=== PATIENT | female | born 1980 | race Caucasian/White ===

== ENCOUNTER → 2023-12-27 18:34 | Outpatient (REF) | payer BC, SELFPAY | LOC: WDC 18:34 | PROVIDERS: ATTENDING PHYSICIAN Physician Assistant | DX: Z12.31 Encounter for screening mammogram for malignant neoplasm of breast (principal) | CPT/HCPCS: 77063; 77067 ==

== ENCOUNTER → 2024-01-13 11:30 | Outpatient (REF) | payer BC, SELFPAY ==
[2024-01-14 10:38] LABS: Glycohemoglobin (HgbA1c) 6.4 % (4.0-5.6)
== END ==
LOC: REG 11:30
PROVIDERS: ATTENDING PHYSICIAN Physician Assistant
DX: E11.69 Type 2 diabetes mellitus with other specified complication (principal)
CPT/HCPCS: 83036

== ENCOUNTER → 2024-08-05 12:17 | Outpatient (REF) | payer BC, SELFPAY ==
[2024-08-09 06:40] LABS: HPV, High Risk Not Detected; HPV, High Risk Source Cervical
== END ==
LOC: CPAP 12:17
PROVIDERS: ATTENDING PHYSICIAN Obstetrics & Gynecology
DX: Z01.419 Encounter for gynecological examination (general) (routine) without abnormal findings (principal); Z11.51 Encounter for screening for human papillomavirus (HPV)
CPT/HCPCS: 87624

== ENCOUNTER → 2024-08-08 18:27 | Outpatient (REF) | payer BC, SELFPAY | LOC: RAD 18:27 | PROVIDERS: ATTENDING PHYSICIAN Nurse Practitioner; FAMILY PHYSICIAN Physician Assistant | DX: M25.579 Pain in unspecified ankle and joints of unspecified foot (principal) | CPT/HCPCS: 73610 ==

== ENCOUNTER → 2024-10-02 12:18 | Outpatient (REF) | payer BC, SELFPAY | LOC: RAD 12:18 | PROVIDERS: ATTENDING PHYSICIAN Physician Assistant | DX: E04.9 Nontoxic goiter, unspecified (principal) | CPT/HCPCS: 76536 ==

== ENCOUNTER → 2024-11-07 11:51 | Outpatient (REF) | payer BC, SELFPAY ==
[2024-11-07 15:22] LABS: Glycohemoglobin (HgbA1c) 5.9 % (4.0-5.6)
== END ==
LOC: REG 11:51
PROVIDERS: ATTENDING PHYSICIAN Physician Assistant
DX: E11.69 Type 2 diabetes mellitus with other specified complication (principal)
CPT/HCPCS: 83036

== ENCOUNTER → 2025-01-20 13:34 | Outpatient (REF) | payer BC, SELFPAY | LOC: WDC 13:34 | PROVIDERS: ATTENDING PHYSICIAN Obstetrics & Gynecology; FAMILY PHYSICIAN Physician Assistant | DX: Z12.31 Encounter for screening mammogram for malignant neoplasm of breast (principal) | CPT/HCPCS: 77063; 77067 ==

== ENCOUNTER → 2025-05-31 10:10 | Outpatient (REF) | payer BC, SELFPAY ==
[2025-05-31 12:16] LABS: Hematocrit 44.1 % (37.0-47.0); Hemoglobin 14.9 g/dL (12.0-16.0); Mean Corp Hgb Conc. 33.8 g/dL (33.0-37.0); Mean Corpuscular Volume 82.6 fL (81.0-99.0); Nucleated Red Blood Cells % 0 %; Platelet Count 412 10^3/uL (130-400); Red Cell Dist. Width 12.3 % (11.5-14.5)
[2025-05-31 12:42] LABS: ALT (SGPT) 24 U/L (0-35); AST (SGOT) 28 U/L (14-36); Albumin 4.3 g/dl (3.5-5.0); Alkaline Phosphatase 71 U/L (38-126); Blood Urea Nitrogen 8 mg/dl (7-17); Calcium 9.9 mg/dl (8.4-10.2); Carbon Dioxide 24 mmol/L (22-30); Chloride 108 mmol/L (98-107); Glucose 93 mg/dl (70-99); HDL Cholesterol 39 mg/dl; Iron 104 ug/dl (37-170); LDL Cholesterol, Calculated 127 mg/dl; Potassium 5.0 mmol/L (3.5-5.1); Sodium 136 mmol/L (135-145); Total Protein 7.0 g/dl (6.3-8.2); Very Low Density Lipoprotein 34 mg/dl (0-30); eGFR > 60.00
[2025-05-31 12:51] LABS: Microalbumin, Random Urine 1.3 mg/dl (0.6-1.7)
[2025-05-31 12:52] LABS: Total Iron Binding Capacity 375 ug/dl (265-497)
[2025-05-31 13:17] LABS: Ferritin 23.0 ng/ml (6.24-137)
[2025-05-31 13:24] LABS: Glycohemoglobin (HgbA1c) 5.7 % (4.0-5.6)
[2025-05-31 13:32] LABS: Vitamin B12 916 pg/ml (239-931)
== END ==
LOC: CLAB 10:10
PROVIDERS: ATTENDING PHYSICIAN Physician Assistant
DX: D72.829 Elevated white blood cell count, unspecified (principal); E66.01 Morbid (severe) obesity due to excess calories; L40.9 Psoriasis, unspecified; E11.9 Type 2 diabetes mellitus without complications; E78.2 Mixed hyperlipidemia; R53.83 Other fatigue
CPT/HCPCS: 80053; 80061; 82043; 82607; 82728; 83036; 83540; 83550; 84443; 85025